=== PATIENT | male | born 1970 | race Asian ===

== ENCOUNTER 2018-10-23 21:34 | Emergency (ER) | payer OTHER ==
[~2018-10-23] VITALS: Ht 172.7 cm; Wt 80.6 kg
[2018-10-23 21:41] VITALS: BP 174/90; PULSE 88; RESP 18; Ht 172.7 cm; Wt 80.6 kg
[2018-10-24] MEDS ORDERED: dm meds (01:17)
[2018-10-24] MEDS ORDERED: htn meds (01:17)
--- NOTE | 2018-10-24 01:18 | ERD ---
ER Documentation Chief Complaint Chief Complaint laceration right 2nd, 3rd, 5th fingers from toy plane about 1 hour ago HPI 48-year-old male presents to emergency department for laceration wound on the right second, third and fifth fingers after playing with a toy plane, bleeds of the toy plane hit his hand. Complains of pain sharp pain, 6/10 scale, not better or worse with anything, denies any joint involvement, denies any limitation of movement of the joints. Patient denies any numbness or tingling. ROS All systems reviewed and are negative except as per history of present illness. Medications Home Meds Reported Medications [htn meds] Unknown Strength No Conflict Check 10/24/18 [dm meds] Unknown Strength No Conflict Check 10/24/18 Allergies Allergies: Coded Allergies: No Known Drug Allergies (Verified Allergy, Unknown, 10/23/18) PMhx/Soc Unknown last tetanus immunization Medical and Surgical Hx: pt denies Surgical Hx Hx Miscellaneous Medical Probl: Yes (htn, dm) Hx Alcohol Use: No Hx Substance Use: No Hx Tobacco Use: No Smoking Status: Never smoker FmHx Family History: No diabetes, No coronary disease, No other Physical Exam Vitals Vital Signs Date Temp Pulse Resp B/P (MAP) Pulse Ox O2 O2 Flow FiO2 Time Delivery Rate 10/23/18 97.4 88 18 174/90 98 21:41 (118) Physical Exam GENERAL: The patient is well developed and appropriate for usual state of health, in no apparent distress. CHEST: Clear to auscultation bilaterally. There are no rales, wheezes or rhonchi. HEART: Regular rate and rhythm. No murmurs, clicks, rubs or gallops. No S3 or S4. ABDOMEN: Soft, nontender and nondistended. Good bowel sounds. No rebound or guarding. No gross peritonitis. No gross organomegaly or masses. No Serrano sign or McBurney point tenderness. BACK: No midline or flank tenderness. EXTREMITIES: NoTed superficial laceration wound on the third and second finger, 1 cm in length. Noted 1.5 cm laceration, involving subcutaneous layers, and superficial laceration 1 cm on the fifth digit of the right hand. Equal pulses bilaterally. There is no peripheral clubbing, cyanosis or edema. No focal swelling or erythema. Full range of motion. Grossly neurovascularly intact. NEURO: Alert and oriented. Cranial nerves 2-12 intact. Motor strength in all 4 extremities with 5/5 strength. Sensation grossly intact. Normal speech and gait. SKIN: There is no apparent rash or petechia. The skin is warm and dry. HEMATOLOGIC AND LYMPHATIC: There is no evidence of excessive bruising or lymphedema. No gross cervical, axillary, or inguinal lymphadenopathy. Results 24 hrs Current Medications Medications Dose Sig/Ricky Start Time Status Last (Trade) Ordered Route PRN Stop Time Admin Dose Reason Admin Diphtheria/ 0.5 ml ONCE ONCE 10/24/18 DC 10/24/18 Tetanus/Acell IM* 01:30 01:22 Pertussis 10/24/18 01:31 (Adacel) Tdap was given to prevent tetanus. Patient tolerated medication well. PROCEDURE: DX Hand. CLINICAL INDICATION: Acute trauma right middle and fifth fingers. Pain. TECHNIQUE: 3 views COMPARISON: None. FINDINGS: Osseous structures: Normal bone mineralization. No acute fracture. There is chronic tapering of the tuft of the distal phalanx of the middle finger. No lytic or blastic changes. Joint space: Joint spaces maintained. Soft tissues: There is chronic loss of tissue involving the distal index finger, best shown on the lateral view. No radiopaque foreign body or soft tissue gas. IMPRESSION: 1. No acute fracture dislocation. 2. Chronic tissue loss and volar aspect distal right index finger. 3. Tapering of the volar aspect of the tuft of distal phalanx of the right middle finger, chronic in appearance. RPTAT: [facility] Physician Jabier Date Time Electronically viewed and signed by Physician Jabier on 10/24/2018 02:38 RS/ Procedures/MDM Procedure Note: After obtaining informed consent, the wound was irrigated with 250 ml of normal saline and cleaned with diluted betadine. Using aseptic technique, the wound was approximated using a dermabond was used to approximate laceration on 2nd and third finger and superficial lac in 5th finger. After the procedure, the wound was well approximated. Patient tolerated procedure well. Procedure Note: After obtaining informed consent, the wound was irrigated with 250 ml of normal saline and cleaned with diluted betadine. Using aseptic technique, 3 ml of 1% lidocaine was injected on the subcutaneous tissue of the laceration wound for anesthetic. After the anesthetic, the deeper wound on the fifth finger was approximated using 6 interrupted sutures of 4-0 Prolene. After the procedure, the wound was well approximated. Patient tolerated procedure well. Bacitracin was applied on the area and a dry dressing. Medical Decision Making: Patient's pain is most likely consistent with finger contusions and lacerations. There is no suspicion for neurovascular compromise. Patient has intact sensation and circulation of the affected extremity. There is low suspicion for septic arthritis. Patient does not have any fever. Radiology exams of the affected area does not show any fracture or dislocation. Disposition: Home. Patient is given prescription for ibuprofen for pain, keflex to prevent infection. Patient was advised to elevate the affected area, keep area dry, wound check in 2 days suture removal in 10 days. Patient was advised that if symptoms are worse, numbness, tingling, high fever, unable to move joint, worsening symptoms, to return to emergency department immediately. Otherwise, patient is advised to follow up with the primary care doctor in 5-7 days for reevaluation of symptoms. Disclaimer: Inadvertent spelling and grammatical errors are likely due to EHR/dictation software use and do not reflect on the overall quality of patient care. Also, please note that the electronic time recorded on this note does not necessarily reflect the actual time of the patient encounter. Departure Diagnosis: Primary Impression: Finger laceration Encounter type: initial encounter Finger: unspecified finger Damage to nail status: without damage Foreign body presence: without foreign body Laterality: right Qualified Codes: S61.219A - Laceration without foreign body of unspecified finger without damage to nail, initial encounter Additional Impression: Hand injury Encounter type: initial encounter Laterality: right Qualified Codes: S69.91XA - Unspecified injury of right wrist, hand and finger(s), initial encounter Condition: Stable Patient Instructions: Ganesh, Hand MEHREEN MOON NP Oct 24, 2018 01:18
[2018-10-24] MEDS ORDERED: DIPHTH/TET/ACEL PERTUSS (ADULT) 0.5 ML VIAL IM* ONE (01:30)
[2018-10-24] MEDS ORDERED: IBUP-1542 PO (03:28)
[2018-10-24] MEDS ORDERED: CEPH-443 PO (03:28)
== END 2018-10-24 04:10 | disposition home or self-care (01) ==
LOC: FTE 21:34
DX: S61.210A Laceration without foreign body of right index finger without damage to nail, initial encounter (principal); S61.212A Laceration without foreign body of right middle finger without damage to nail, initial encounter; S61.216A Laceration without foreign body of right little finger without damage to nail, initial encounter; I10 Essential (primary) hypertension; E11.9 Type 2 diabetes mellitus without complications; W22.8XXA Striking against or struck by other objects, initial encounter; Y92.9 Unspecified place or not applicable; Z23 Encounter for immunization
CPT/HCPCS: 12001; 73130; 90471; 90715; Z7502